=== PATIENT | female | born 1990 | race Caucasian/White ===

== ENCOUNTER 2019-07-01 20:00 | Emergency (ER) | payer MEDICAID, OTHER ==
[~2019-07-01] VITALS: Ht 160 cm; Wt 70.5 kg
[2019-07-01] MEDS ORDERED: GUAI1TAB72 PO (20:39)
[2019-07-01] MEDS ORDERED: ZOLO50TA PO (20:41)
[2019-07-01] MEDS ORDERED: CYCL10TA PO (20:41)
[2019-07-01] MEDS ORDERED: ADDE15CA3 PO (20:41)
[2019-07-01 21:56] VITALS: BP 119/72
== END 2019-07-01 21:58 | disposition home or self-care (01) ==
LOC: M ED 20:00
DX: F43.0 Acute stress reaction (principal); F32.9 Major depressive disorder, single episode, unspecified; F17.218 Nicotine dependence, cigarettes, with other nicotine-induced disorders

== ENCOUNTER → 2021-05-20 | Outpatient (REF) ==
[~2021-05-20] MED LIST: ADDE15CA3 PO; CYCL-707 PO; GUAI1TAB72 PO; ZOLO50TA PO
--- NOTE | 2021-05-20 13:37 | REP ---
INDICATION: ESSENTIAL (PRIMARY) HYPERTENSION. COMPARISON: None TECHNIQUE: AP, lateral, swimmer's, and open-mouth views FINDINGS: Vertebral body height and alignment is within normal limits. The disc spaces appear symmetric and well maintained throughout on this limited exam. The facet joints appear to be well aligned bilaterally. IMPRESSION: Within normal limits <Electronically signed by Edgardo Ibarra > 05/20/21 [id number]
--- NOTE | 2021-05-20 13:44 | REP ---
INDICATION: ESSENTIAL (PRIMARY) HYPERTENSION COMPARISON: None. TECHNIQUE: AP, lateral, coned-down views of the lumbar spine. FINDINGS: Three views of the lumbosacral spine demonstrate satisfactory alignment and lordosis without acute fracture / compression injury or subluxation. Examination is essentially age-appropriate and without overt degenerative changes appreciated. IMPRESSION: 1. No acute fracture / compression injury or subluxation. 2. Age-appropriate examination. No overt degenerative spondylosis noted <Electronically signed by Natanael Dodson > 05/20/21 [id number]
== END ==
LOC: M PLAIMG 11:22
PROVIDERS: ATTEND Internal Medicine
DX: M54.50 Low back pain, unspecified (principal); M54.2 Cervicalgia